=== PATIENT | male | born 1980 | race Caucasian/White ===

== ENCOUNTER 2019-05-23 10:44 | Emergency (ER) | payer BC ==
[~2019-05-23] VITALS: Ht 170.2 cm; Wt 66.7 kg
[2019-05-23 10:52] VITALS: BP 112/74
[2019-05-23] MEDS ORDERED: ONDANSETRON 4 MG TAB.RAPDIS ONE (11:14)
[2019-05-23] MEDS ORDERED: MECLIZINE HCL 25 MG TABLET ONE (11:14)
--- NOTE | 2019-05-23 11:16 | NUR ---
Patient discharged to home in stable condition. Written and verbal after care instructions given. Patient verbalizes understanding of instruction.
[2019-05-23] MEDS ORDERED: MECLIZINE HCL 25 MG TABLET PO ONE (11:30)
[2019-05-23] MEDS ORDERED: ONDANSETRON 4 MG TAB.RAPDIS SL ONE (11:30)
== END 2019-05-23 11:22 | disposition home or self-care (01) ==
LOC: ER 10:53
DX: R42 Dizziness and giddiness (principal); R11.2 Nausea with vomiting, unspecified
CPT/HCPCS: 99283; J8597; Q0162